=== PATIENT | male | born 1945 | race American Indian/Alaskan Native ===

== ENCOUNTER 2016-09-13 08:23 | Emergency (ER) | payer MEDICARE ==
[2016-09-13 09:11] VITALS: BP 123/70
--- NOTE | 2016-09-13 17:35 | Emergency Department Report ---
Entered by ADELA GARRETT, acting as scribe for SRINATH WOODS PA. HPI - General Chief Complaint: Pain General Time Seen by Provider: 09/13/16 09:17 - HPI HPI: 71 y/o male with a PMHx of IDDM, seizures, and CVA presents to the ED c/o intermittent hiccups that began 2 days ago. Denies weakness, fever, chills, sore throat, abdominal pain, nausea, and vomiting. Patient was seen in this ED on 10/17/2013 for similar complaints and was prescribed Throazine. Patient states the hiccups resolved upon arrival to the ED. Reports that he currently feels much better and has no complaints of pain. Reports normal PO intake and normal bowel movements. Patient states he only consumed water to resolve his hiccups. NKDA. Patient goals this [facility] for primary care. ED Past Medical Hx - Past Medical History Previous Medical History?: Yes Hx CVA: Yes Hx Diabetes: Yes Hx Seizures: Yes - Surgical History Past Surgical History?: Yes Additional Surgical History: Left hip sx. - Family History Family history: no significant - Social History Smoking Status: Never Smoker Substance Use Type: None Other Social History: Patient lives at home with daughter - Medications Home Medications: Home Medications Medication Instructions Recorded Confirmed Last Taken Type Famotidine [Pepcid] 20 mg PO BID #10 tablet 10/17/13 Unknown Rx chlorproMAZINE [Thorazine] 25 mg PO Q6H PRN #8 tablet 09/13/16 Unknown Rx ED Review of Systems ROS: Stated complaint: HICCUPS Other details as noted in HPI Comment: All other systems reviewed and negative Constitutional: denies: chills, diaphoresis, fever, malaise, weakness Eyes: denies: eye pain, eye discharge, vision change ENT: denies: ear pain, throat pain, hearing loss Respiratory: denies: cough, orthopnea, shortness of breath, SOB with exertion, SOB at rest, stridor, wheezing Cardiovascular: denies: chest pain, palpitations, dyspnea on exertion, orthopnea , edema, syncope, paroxysmal nocturnal dyspnea Endocrine: no symptoms reported Gastrointestinal: denies: abdominal pain, nausea, vomiting, diarrhea Musculoskeletal: denies: back pain, joint swelling, arthralgia Skin: denies: rash, lesions Neurological: denies: headache, weakness, numbness, paresthesias, confusion Psychiatric: denies: anxiety, depression Hematological/Lymphatic: denies: easy bleeding, easy bruising Physical Exam - Physical Exam Vital Signs: Vital Signs 09/13/16 09:05 Temperature 96.4 F L Pulse Rate 72 Blood Pressure 123/70 O2 Sat by Pulse 98 Oximetry Vital Signs 09/13/16 09/13/16 09:05 09:20 Temperature 96.4 F L Pulse Rate 72 Respiratory 18 Rate Blood Pressure 123/70 O2 Sat by Pulse 98 Oximetry General: General: well nourished, well developed, 71 year old male in no acute distress and nontoxic in appearance Physical Exam: Head: Normocephalic, atraumatic Mouth: Moist, no pharyngeal exudate or erythema. Uvula is midline and oral airway is patent. No facial swelling.No peritonsillar abscesses. Nose: Normal external appearance, no drainage. Neck: Supple, no C-spine tenderness, no tracheal deviation. Nontender to palpation. no adenopathy Ears: Bilateral TMs ar without any redness, swelling, or drainage. Bilateral EAC without any redness, swelling, or drainage. Abdomen: Soft, nontender to palpation in all quadrants, normal bowel sounds in all quadrants. Eyes: Bilateral pupils equal and reactive to light, bilateral EOM intact. Bilateral sclera and conjunctiva without injection. Normal accommodation. Lungs: Clear to auscultation bilaterally, no rhonchi, wheezes, or rales. Normal work of breathing. No use of accessory muscles Extremities: No CCE. +2 pulses. No swelling or tenderness to lower extremities. No neurovascular compromise. MSK: Ambulatory with a walker. Chronic left sided weakness and decreased mobility. Cardiovascular: S1-S2, regular rate, regular rhythm. No murmurs. Skin: Clean, dry, and intact with no rash and no lesions Psych: Normal mood and behavior ED Course Vital Signs 09/13/16 09:05 Temperature 96.4 F L Pulse Rate 72 Blood Pressure 123/70 O2 Sat by Pulse 98 Oximetry - Reevaluation(s) Reevaluation #1: 09/13/16 17:31 Patient had an uneventful course ED Medical Decision Making - Medical Decision Making MDM: Patient here complaining of hiccups doesn't been ongoing for a few days but he came through margin to room at family friend and a hiccups stopped. She was treated previously in the emergency room for gastritis and hiccups. Given Thorazine. Patient is not having any pain and his diagnosis is hiccups. Patient with previous history of stroke. Labs: For lab. PLAN: Discussed the patient that he needs to follow up with his neurologist and his primary care physician which she does have one. She discharged home and voiced understanding of discharge instruction with prescription for Thorazine No. 8. Critical care attestation.: If time is entered above; I have spent that time in minutes in the direct care of this critically ill patient, excluding procedure time. ED Disposition Clinical Impression: Hiccups Disposition: DC-01 TO HOME OR SELFCARE Is pt being admited?: No Does the pt Need Aspirin: No Condition: Stable Instructions: Hiccups (ED) Additional Instructions: Increase fluid intake. Take medication as instructed. Follow up with primary care physician Prescriptions: chlorproMAZINE [Thorazine] 25 mg PO Q6H PRN #8 tablet PRN Reason: Hiccups Referrals: [facility] [Outside] - 2-3 Days This documentation as recorded by the TAMI alejandre JASMINE,accurately reflects the service I personally performed and the decisions made by me,SRINATH WOODS PA.
== END 2016-09-13 09:49 | disposition home or self-care (01) ==
LOC: ED 08:23
DX: R06.6 Hiccough (principal); E10.9 Type 1 diabetes mellitus without complications; Z86.73 Personal history of transient ischemic attack (TIA), and cerebral infarction without residual deficits
CPT/HCPCS: 99282